=== PATIENT | female | born 1960 | race Caucasian/White ===

== ENCOUNTER → 2016-11-17 | Outpatient (REF) | payer OTHER | LOC: M LAB REF 16:52 | PROVIDERS: ATTEND Obstetrics & Gynecology | DX: Z01.419 Encounter for gynecological examination (general) (routine) without abnormal findings (principal) ==

== ENCOUNTER → 2016-11-30 | Outpatient (REF) | payer OTHER | LOC: M LAB REF 12:18 | PROVIDERS: ATTEND Obstetrics & Gynecology | DX: Q82.9 Congenital malformation of skin, unspecified (principal) ==

== ENCOUNTER → 2016-12-12 | Outpatient (CLI) | payer OTHER ==
--- NOTE | 2016-12-12 11:32 | REPMRS ---
Patient History The patient states she had a clinical breast exam in 11/2016. Patient is postmenopausal and has history of skin cancer at age 44. Family history of endometrial cancer in mother at age 50 or over, breast cancer in maternal grandmother at age 50 or over, and breast cancer in maternal cousin at age 50 or over. Took unspecified hormones for 6 years. Digital Woman Screen Mammo: December 12, 2016 - Exam #: [id number] Bilateral CC and MLO view(s) were taken. Technologist: Columba Cheema, Technologist Prior study comparison: December 07, 2015, digital woman screen mammo performed at [facility]. December 05, 2014, digital woman screen mammo performed at [facility]. December 02, 2013, digital woman screen mammo performed at [facility]. FINDINGS: The breast tissue is almost entirely fat. There has been no change in the appearance of the mammogram from the prior studies. There is no interval development of dominant mass, architectural distortion, or clustered microcalcification typical of malignancy. ASSESSMENT: BI-RADS/ACR category 1 mammogram. Negative. Recommendation Routine screening mammogram of both breasts in 1 year (for women over age 40). This mammogram was interpreted with the aid of an FDA-approved computer-aided dectection system. Electronically Signed By: Jagjit Ha MD 12/12/16 [id number]
--- NOTE | 2016-12-14 11:25 | DEXA ---
AP SPINE L1 - L4 1.285 0.7 0.7 LT FEMUR TOTAL 1.231 1.8 1.8 RT FEMUR TOTAL 1.151 1.1 1.2 TOTAL BODY TOTAL OTHER DUAL FEMUR FRAX* ASSESSMENT Risk factors: None. 10 year probability of fracture Major osteoporotic fracture 5.2 % Hip fracture 0.1 % COMMENTS: Normal bone densitometry of the spine and hips. The density of the spine has decreased 7.8% since the initial exam on 2007. The spine density has decreased 5.4% since the most recent exam on 11/27/2012. The density of the left hip has decreased 4.9% since the initial exam on 2007. The density of the left hip has decreased 3.4% since the most recent exam on . The density of the right hip has decreased 4.2% since the initial exam on 2007. The density of the right hip has decreased 2.4% since the most recent exam on . FOLLOW-UP: Recommendation for the next bone density exam: 5 years. KAZ
== END ==
LOC: M WHC 09:56
PROVIDERS: ATTEND Obstetrics & Gynecology
DX: Z12.31 Encounter for screening mammogram for malignant neoplasm of breast (principal); Z13.820 Encounter for screening for osteoporosis

== ENCOUNTER → 2017-12-19 | Outpatient (CLI) | payer OTHER | LOC: M WHC 09:00 | DX: Z12.31 Encounter for screening mammogram for malignant neoplasm of breast (principal) ==

== ENCOUNTER → 2020-01-30 | Outpatient (CLI) | payer OTHER ==
--- NOTE | 2020-01-30 15:49 | REPMRS ---
Patient History The patient states she had a clinical breast exam in January 2020. Family history of breast cancer at age 50 or over in maternal grandmother, breast cancer at age 50 or over in maternal cousin, endometrial cancer at age 50 or over in mother, colorectal cancer at age 67 in brother. Took unspecified hormones for 6 years. Digital Woman Screen Mammo: January 30, 2020 - Exam #: [id number] Bilateral CC and MLO view(s) were taken. Technologist: Tamara Forte, Technologist Prior study comparison: December 21, 2018, bilateral digital woman screen mammo performed at [facility]. December 19, 2017, digital woman screen mammo performed at [facility]. December 12, 2016, digital woman screen mammo performed at [facility]. FINDINGS: The breast tissue is almost entirely fat. The Volpara volumetric breast density category is: A. There has been no change in the appearance of the mammogram from the prior studies. There is no interval development of dominant mass, architectural distortion, or grouped microcalcification typical of malignancy. 3-D tomosynthesis shows no additional findings. Assessment: BI-RADS/ACR category 1 mammogram. Negative Mammogram. Recommendation Routine screening mammogram of both breasts in 1 year (for women over age 40). This patient's Lifetime Breast Cancer RIsk is estimated at 10.0 %. This mammogram was interpreted with the aid of an FDA-approved computer-aided dectection system. Electronically Signed By: Jagjit Ha MD 01/30/20 [id number]
== END ==
LOC: M WHC 15:09
PROVIDERS: ATTEND Obstetrics & Gynecology
DX: Z12.31 Encounter for screening mammogram for malignant neoplasm of breast (principal); Z80.3 Family history of malignant neoplasm of breast; Z80.0 Family history of malignant neoplasm of digestive organs; Z80.49 Family history of malignant neoplasm of other genital organs

== ENCOUNTER → 2021-02-03 | Outpatient (CLI) | payer OTHER ==
--- NOTE | 2021-02-03 16:23 | REPMRS ---
Patient History The patient states she had a clinical breast exam in 01/2021. Patient is postmenopausal and has history of basal cell skin cancer at age 44. Family history of breast cancer at age 55 in maternal grandmother, breast cancer at age 50 or over in maternal cousin, endometrial cancer at age 50 or over in mother, colorectal cancer at age 67 in brother. Took unspecified hormones for 6 years. Patient states no breast complaints today. Patient has signed MRS History Sheet. Digital Woman Screen Mammo: February 03, 2021 - Exam #: [id number] Bilateral CC and MLO view(s) were taken. Technologist: Columba Chemea, Technologist Prior study comparison: January 30, 2020, bilateral digital woman screen mammo performed at [facility]. December 21, 2018, bilateral digital woman screen mammo performed at [facility]. FINDINGS: The breast tissue is almost entirely fat. Screening. Digital screening (2D) mammography was performed bilaterally in the CC and MLO projections. Additionally, breast tomosynthesis (3D mammography) was performed bilaterally in the CC and MLO projections. Todays exam was compared to the prior exams(s). By history, the patient has no complaints of a palpable breast abnormality or other significant breast complaints. The breasts are unchanged in size and shape. There are no kayla-soft tissue densities or spiculated masses. There is no internal architectural distortion. There are no suspicious kayla-calcific clusters. Skin thickening or nipple retraction is not present. IMPRESSION: BI-RADS Category 2- Benign Findings(s). There is no evidence of malignant alteration of the breasts. Followup examination recommended in one year. The Volpara volumetric breast density category is A, the breasts are almost entirely fatty. This mammogram was read with the assistance of [employer],an FDA approved computer aided detection system for mammography. The lifetime Tyrer-Cuzick score is 9.7 % Negative x-ray reports should not delay surgical consultation if a dominant or clinically suspicious mass is present. Not all breast cancers can be identified by mammography. Therefore, we recommend that you continue to perform regular breast self-examination and physical examination and then promptly contact your physician of any concerns or changes. Adenosis and dense breasts may obscure an underlying neoplasm. Assessment: BI-RADS/ACR category 2 mammogram. Benign Findings. Recommendation Routine screening mammogram of both breasts in 1 year. Electronically Signed By: Henry Thompson DO 02/03/21 [id number]
== END ==
LOC: M WHC 15:21
PROVIDERS: ATTEND Obstetrics & Gynecology
DX: Z12.31 Encounter for screening mammogram for malignant neoplasm of breast (principal); Z13.820 Encounter for screening for osteoporosis; Z85.828 Personal history of other malignant neoplasm of skin; Z80.49 Family history of malignant neoplasm of other genital organs; Z80.0 Family history of malignant neoplasm of digestive organs

== ENCOUNTER → 2022-02-16 | Outpatient (CLI) | payer OTHER | LOC: M WHC 13:44 | PROVIDERS: ATTEND Obstetrics & Gynecology | DX: Z12.31 Encounter for screening mammogram for malignant neoplasm of breast (principal); Z13.820 Encounter for screening for osteoporosis; Z80.3 Family history of malignant neoplasm of breast ==

== ENCOUNTER → 2023-02-21 | Outpatient (CLI) | payer OTHER | LOC: M WHC 13:32 | PROVIDERS: ATTEND Obstetrics & Gynecology | DX: Z12.31 Encounter for screening mammogram for malignant neoplasm of breast (principal) ==

== ENCOUNTER → 2024-02-27 | Outpatient (CLI) | payer MEDICARE, OTHER | LOC: M WHC 13:49 | PROVIDERS: ATTEND Obstetrics & Gynecology | DX: Z12.31 Encounter for screening mammogram for malignant neoplasm of breast (principal); Z13.820 Encounter for screening for osteoporosis; M85.89 Other specified disorders of bone density and structure, multiple sites; R92.313 Mammographic fatty tissue density, bilateral breasts ==